=== PATIENT | female | born 1985 | race Caucasian/White ===

== ENCOUNTER 2021-05-27 16:40 | Emergency (ER) | payer OTHER ==
[~2021-05-27] VITALS: Ht 152.4 cm; Wt 90.7 kg
[2021-05-27] MEDS ORDERED: BACTRIM DS TAB1 EAC1 PO (17:17)
[2021-05-27 17:32] VITALS: BP 152/72
== END 2021-05-27 17:33 ==
LOC: M.ERS 16:40
DX: S80.861A Insect bite (nonvenomous), right lower leg, initial encounter (principal); L03.115 Cellulitis of right lower limb; W57.XXXA Bitten or stung by nonvenomous insect and other nonvenomous arthropods, initial encounter; Y93.89 Activity, other specified; Y92.89 Other specified places as the place of occurrence of the external cause; Y99.8 Other external cause status